=== PATIENT | male | born 1995 | race Caucasian/White ===

== ENCOUNTER 2018-03-05 19:06 | Emergency (ER) | payer BC ==
[~2018-03-05] VITALS: Ht 177.8 cm; Wt 85.6 kg
[2018-03-05 19:09] VITALS: Ht 177.8 cm; Wt 85.6 kg
--- NOTE | 2018-03-05 19:28 | EMERGENCY ROOM VISIT NOTE ---
ED Visit Note First contact with patient: 19:13 HPI: 22 y/o gentleman with f/c, cough, congestion for several days. PE: Temp 37, HR 130s VSS. NAD NC/AT Neck supple, FROM Oropharynx with dry MM and otherwise unremarkable. RRR, no murmurs CTAB Abd soft NT/ND Ext: no edema, erythema Neuro: grossly intact Plan: Flu-like sx. Appears mildly dry. Otherwise well appearing. Labs unremarkable including wbc wnl. Chemistry unremarkable. CXR negative. Flu, mono negative. Likely viral illness. Plan for pcp f/u. I reviewed the patient's past medical history, medications, and visit nursing notes. I discussed the case with the resident physician, examined the patient, and agree with the findings and plan as documented in the residents note unless otherwise clarified here by me.
[2018-03-05] MEDS ORDERED: SODIUM CHLORIDE 0.9% 1000ML 1,000 ML IV ONE (19:30)
[2018-03-05] MEDS ORDERED: ALBUT/IPRATROP 3MG/0.5MG NEB 3 ML VIAL INH SCH (19:30)
--- NOTE | 2018-03-05 19:31 | EMERGENCY ROOM VISIT NOTE ---
History First contact with patient: 19:13 Chief Complaint: FLU LIKE SX Stated Complaint: HIGH FEVER, MUSCLE SORENESS IN BACK, COUGH History of Present Illness The patient is a 22 year old male who presents to the Emergency Room with complaints of persistent fever and non productive cough. The patient states at the end of january he started with myalgias, rhinorrhea and general malaise. This persisted and then over the weekend he started to develop low grade fever as well as progressive and persistent dry cough. He was seen in walk in clinic and had negative monospot, RST and influenza. He checked his temp today and noticed a temp of 103F and this was an hour prior to arrival. Considering the persistent nature of the fever and cough this concerned the patient and he presented to the ED. 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 No recent tropical travel , no known bug bites. No sick contacts Review of Systems A 10 point review of systems completed and negative aside from above Past Medical/Surgical History [place] tooth extraction Family History Patient reports no known family medical history. Social History Smoking Status: Never Smoker Smokeless Tobacco Use: No Alcohol Use: occasionally Drug Use: none Marital Status: in relationship Housing Status: lives with roommate Occupation Status: [employer] student Current/Historical Medications Scheduled Albuterol Hfa (Ventolin Hfa), 2-4 PUFFS INH Q6H Physical Exam Vital Signs Date Time Temp Pulse Resp B/P (MAP) Pulse Ox O2 Delivery O2 Flow Rate FiO2 03/05/18 21:17 117 20 146/87 98 Room Air 03/05/18 19:09 37.4 135 20 146/84 96 Room Air Physical Exam General: ambulatory, not in acute distress Skin: no rashes noted, no suspicious lesions, no areas of inflammations/ lacerations/ erythema noted CVS: S1/ S2 noted, RRR, no rubs/ murmurs noted, no cyanosis RVS: Clear throughout bilaterally, not in acute respiratory distress, no wheezing/ rales/ crackles noted ENT: TM bilat nonerythematous with small bilat serous effusions, no erythema/ injection/ ulcerations noted in the pharynx, no lymphadenopathy Neck: inspection WNL, full ROM of neck, thyroid not palpable ABD: BSx4, no pain/ tenderness on palpation, no organomegaly, negative murphys, psoas, Rovsing, CVA tenderness MSK: inspection of all limbs WNL, motor and sensation intact in all limbs, no swelling/ pain on palpation of joints NVS: PERRL, EOMI, sensation intact in all extremities Lymph: No lymphadenopathy palpable Medical Decision & Procedures ER Provider Diagnostic Interpretation: CHEST ONE VIEW PORTABLE CLINICAL HISTORY: illness COMPARISON STUDY: No previous studies for comparison. FINDINGS: Lung volumes are normal. No pneumothorax or pleural effusion is noted. There may be a left-sided cervical rib with cortical thickening. This is not acute and could reflect a healing fracture or congenital anomaly. Cardiac size is normal. Mediastinal contours are normal. There is no evidence for pulmonary edema. IMPRESSION: No acute cardiopulmonary findings. Laboratory Results 03/05/18 19:36 Red Blood Count 5.02, Mean Corpuscular Volume 82.7, Mean Corpuscular Hemoglobin 28.7, Mean Corpuscular Hemoglobin Concent 34.7, Mean Platelet Volume 9.6, Neutrophils (%) (Auto) 72.9, Lymphocytes (%) (Auto) 14.9, Monocytes (%) (Auto) 9.5, Eosinophils (%) (Auto) 2.2, Basophils (%) (Auto) 0.2, Neutrophils # (Auto) 6.82, Lymphocytes # (Auto) 1.39, Monocytes # (Auto) 0.89, Eosinophils # (Auto) 0.21, Basophils # (Auto) 0.02 03/05/18 19:36 Test 03/05/18 17:36 03/05/18 19:11 03/05/18 19:36 03/05/18 21:42 Influenza Type A Antigen Neg for Influ A (NEG) Influenza Type B Antigen Neg for Influ B (NEG) White Blood Count 9.36 K/uL (4.8-10.8) Red Blood Count 5.02 M/uL (4.7-6.1) Hemoglobin 14.4 g/dL (14.0-18.0) Hematocrit 41.5 % (42-52) Mean Corpuscular Volume 82.7 fL (80-100) Mean Corpuscular Hemoglobin 28.7 pg (25-34) Mean Corpuscular Hemoglobin Concent 34.7 g/dl (32-36) Platelet Count 265 K/uL (130-400) Mean Platelet Volume 9.6 fL (7.4-10.4) Neutrophils (%) (Auto) 72.9 % Lymphocytes (%) (Auto) 14.9 % Monocytes (%) (Auto) 9.5 % Eosinophils (%) (Auto) 2.2 % Basophils (%) (Auto) 0.2 % Neutrophils # (Auto) 6.82 K/uL (1.4-6.5) Lymphocytes # (Auto) 1.39 K/uL (1.2-3.4) Monocytes # (Auto) 0.89 K/uL (0.11-0.59) Eosinophils # (Auto) 0.21 K/uL (0-0.5) Basophils # (Auto) 0.02 K/uL (0-0.2) RDW Standard Deviation 37.9 fL (36.4-46.3) RDW Coefficient of Variation 12.6 % (11.5-14.5) Immature Granulocyte % (Auto) 0.3 % Immature Granulocyte # (Auto) 0.03 K/uL (0.00-0.02) Anion Gap 8.0 mmol/L (3-11) Est Creatinine Clear Calc Drug Dose 107.8 ml/min Estimated GFR () 108.7 Estimated GFR (Non- 93.8 BUN/Creatinine Ratio 11.3 (10-20) Calcium Level 9.6 mg/dl (8.5-10.1) Thyroid Stimulating Hormone (TSH) 1.120 uIu/ml (0.300-4.500) Lyme Disease IgG Antibody NEG (NEG) Lyme Disease IgM Antibody NEG (NEG) Monoscreen NEG (NEG) Medications Administered Medications (Trade) Dose Ordered Sig/Layla Route Start Time Stop Time Status Last Admin Dose Admin Albuterol/ Ipratropium (Duoneb) 3 ml ONE INH 03/05/18 19:30 04/04/18 19:29 03/05/18 19:49 3 ML Sodium Chloride 1,000 ml @ 999 mls/hr Q1H1M ONCE IV 03/05/18 19:30 03/05/18 20:30 DC 03/05/18 19:49 999 MLS/HR Medical Decision Differential diagnosis includes but is not limited to influenza, mononucleosis, viral pharyngitis, lyme disease, hyperthyroidism The patient was evaluated in the ED and blood work was drawn and CXR ordered. CBC did not reveal any leukocytosis or anemia. BMP was WNL with no indication of any RONALD. A TSH was ordered considering the patient tachycardia and fever. TSH was WNL. Monospot and influenza was reordered. Influenza Ag was negative. Monospot was also negative and EBV panel was ordered for outpatient follow up. UA and CXR did not reveal a source of infection. Based on the work up and history the patient is most likely suffering from an influenza like illness. As symptoms started the patient is not a candidate for tamiflu at this time. The patient had a trial of duoneb which resulted in an improvement in the cough. The patient will be discharged with an albuterol inhaler and instructions given on how to use. Discussed case with the patient and agreeable with plan and discharge home. Medication Reconcilliation Current Medication List: was personally reviewed by me Blood Pressure Screening Patient's blood pressure: Elevated blood pressure Blood pressure disposition: Referred to PCP Impression Primary Impression: Influenza-like symptoms Additional Impression: Bronchospasm Departure Information Dispostion Home / Self-Care Condition GOOD Prescriptions Albuterol Hfa (VENTOLIN HFA) 200 Puffs/67023 Mcg Aers 2-4 PUFFS INH Q6H for 30 Days, #1 INHALER Prov: Ariana Cummings MD 03/05/18 Referrals No Doctor, Assigned (PCP) Patient Instructions My [facility] Problem Qualifiers
[2018-03-05 19:43] LABS: INFLUENZA B ANTIGEN Neg for Influ B (NEG)
[2018-03-05 19:49] LABS: BASO % 0.2 %; BASO ABS # 0.02 K/uL (0-0.2); EOS % 2.2 %; EOS ABS # 0.21 K/uL (0-0.5); HEMATOCRIT 41.5 % (42-52); HEMOGLOBIN 14.4 g/dL (14.0-18.0); IG# 0.03 K/uL (0.00-0.02); LYMPH % 14.9 %; LYMPH ABS # 1.39 K/uL (1.2-3.4); MEAN CELL VOLUME 82.7 fL (80-100); MEAN CORPUSCULAR HEMOGLOBIN 28.7 pg (25-34); MEAN CORPUSCULAR HGB CONC 34.7 g/dl (32-36); MEAN PLATELET VOLUME 9.6 fL (7.4-10.4); MONO % 9.5 %; MONO ABS # 0.89 K/uL (0.11-0.59); NEUT % 72.9 %; NEUT ABS # 6.82 K/uL (1.4-6.5); PLATELET COUNT 265 K/uL (130-400); RED CELL DISTRIBUTION WIDTH CV 12.6 % (11.5-14.5); RED CELL DISTRIBUTION WIDTH SD 37.9 fL (36.4-46.3); WHITE BLOOD COUNT 9.36 K/uL (4.8-10.8)
--- NOTE | 2018-03-05 20:05 | DIAGNOSTIC IMAGING REPORT ---
CHEST ONE VIEW PORTABLE CLINICAL HISTORY: illness COMPARISON STUDY: No previous studies for comparison. FINDINGS: Lung volumes are normal. No pneumothorax or pleural effusion is noted. There may be a left-sided cervical rib with cortical thickening. This is not acute and could reflect a healing fracture or congenital anomaly. Cardiac size is normal. Mediastinal contours are normal. There is no evidence for pulmonary edema. IMPRESSION: No acute cardiopulmonary findings. Electronically signed by: Jose A Azevedo M.D. 03/05/2018 8:03 PM Dictated Date/Time: 03/05/2018 8:02 PM
[2018-03-05 20:14] LABS: CALCIUM 9.6 mg/dl (8.5-10.1); CREATININE 1.11 mg/dl (0.60-1.40); POTASSIUM 3.6 mmol/L (3.5-5.1)
[2018-03-05] MEDS ORDERED: VNTHFA/IN INH (21:17)
[2018-03-05 22:21] VITALS: BP 148/93; PULSE 106; TEMP 37.5; O2SAT 96
== END 2018-03-05 22:24 | disposition home or self-care (01) ==
LOC: C.EDB 19:08
DX: R50.9 Fever, unspecified (principal); R05 Cough; M79.1 Myalgia; J34.89 Other specified disorders of nose and nasal sinuses; R53.81 Other malaise; J98.01 Acute bronchospasm; R00.0 Tachycardia, unspecified; R03.0 Elevated blood-pressure reading, without diagnosis of hypertension